=== PATIENT | female | born 1960 | race Caucasian/White ===

== ENCOUNTER 2017-11-25 15:30 | Emergency (ER) | payer BC ==
[~2017-11-25] VITALS: Ht 160 cm; Wt 86.2 kg
[2017-11-25] MEDS ORDERED: BENICAR40 MG PO (15:39)
[2017-11-25] MEDS ORDERED: LYRICA 50 MG50 MG PO (15:39)
[2017-11-25] MEDS ORDERED: ANASTROZOLE1 MG PO (15:41)
[2017-11-25] MEDS ORDERED: EFFEXOR XR37.5 MG PO (15:41)
[2017-11-25] MEDS ORDERED: NORCO 5-325 TA1 EACH PO (17:05)
[2017-11-25] MEDS ORDERED: NABUMETONE 750750 M1 PO (17:05)
[2017-11-25 18:49] VITALS: BP 137/86
== END 2017-11-25 18:50 | disposition home or self-care (01) ==
LOC: M.ERS 15:30
DX: S82.831A Other fracture of upper and lower end of right fibula, initial encounter for closed fracture (principal); W01.0XXA Fall on same level from slipping, tripping and stumbling without subsequent striking against object, initial encounter; Y93.89 Activity, other specified; Y92.89 Other specified places as the place of occurrence of the external cause; Y99.8 Other external cause status; Z85.3 Personal history of malignant neoplasm of breast